=== PATIENT | male | born 1955 | race Caucasian/White ===

== ENCOUNTER 2019-08-04 12:03 | Emergency (ER) | payer OTHER, SELFPAY ==
[2019-08-04 12:11] VITALS: BP 159/87; PULSE 103; RESP 16; TEMP 36.7; O2SAT 98
--- NOTE | 2019-08-04 12:27 | ED.GENADULT ---
HPI - General Adult General Chief complaint: Skin/Abscess/Foreign Body Stated complaint: poison linda oak Time Seen by Provider: 08/04/19 12:27 Source: patient Mode of arrival: ambulatory Limitations: no limitations History of Present Illness HPI narrative: 64-year-old male patient presents to the the medical center with complaints of a rash for the past 3 to 4 days. Patient states he was working out in the yard and thinks he came in contact with poison linda. Patient states that he has rash to bilateral sides of the arms, bilateral and legs, and noticed that his top of the head as well as his face. Patient states yesterday his left eye was swollen now today the right eye is swollen but the left eye is better. Patient denies any vision changes or irritation to the actual eyes only the complaints of the eyelids. Patient states that he has been taking Benadryl for his symptoms. Patient states he has had this before and has needed to be treated with steroids. Related Data Home Medications Medication Instructions Recorded Confirmed budesonide-formoterol [Symbicort] 2 puff INHALATION Q12H 08/04/19 08/04/19 carvedilol 6.25 mg PO BID 08/04/19 08/04/19 folic acid 1 mg PO DAILY 08/04/19 08/04/19 furosemide 20 mg PO DAILY 08/04/19 08/04/19 hydralazine 25 mg PO TID 08/04/19 08/04/19 isosorbide mononitrate 60 mg PO DAILY 08/04/19 08/04/19 thiamine HCl (vitamin B1) [Vitamin 100 mg PO DAILY 08/04/19 08/04/19 B-1] Allergies Allergy/AdvReac Type Severity Reaction Status Date / Time No Known Allergies Allergy Mild Verified 08/04/19 12:18 Review of Systems Review of Systems: Narrative: CONSTITUTIONAL: Denies fever, chills, or sweats. EYES: Denies visual changes, redness, or discharge. ENT: Denies rhinorrhea, congestion, sore throat, or otalgia. CARDIOVASCULAR: Denies chest pain, palpitations, or edema. RESPIRATORY: Denies cough or dyspnea. GASTROINTESTINAL: Denies abdominal pain, nausea, vomiting, or diarrhea. GENITOURINARY: Denies dysuria or hematuria. SKIN: Positive rash to bilateral arms, face and bilateral legs, back and top of head x3 to 4 days MUSCULOSKELETAL: Denies back pain, joint pain, or myalgia. NEUROLOGIC: Denies headache, numbness, or weakness. PSYCHIATRIC: Denies anxiety or depression. [facility] Past Medical History Medical History (Updated 08/04/19 @ 12:36 by ABDIRIZAK Baum) COPD (chronic obstructive pulmonary disease) Leukemia Myocardial infarction Comments At the time of my signature I agree with nursing past medical history, surgical, social, and family history. There is no relevant family history pertinent to the presenting complaint. Exam Narrative: Exam Narrative: GENERAL: Well-appearing, well-nourished, and in no acute distress. HEAD: Normocephalic, atraumatic. EYES: PERRLA and EOM intact without limitation or complaint of pain, right eye periorbital soft tissue swelling and erythema, no warmth or tenderness noted, no obvious deformity. No crusting or swelling.no tearing or draining.No photophobia. No nystagmus No FB or lesion on lid eversion. Corneas grossly clear, no obvious FB or hyphens/hypopyon. No injection to sclera. Lids and lashes clear. ENT: Nares clear, no rhinorrhea or epistaxis. Mucous membranes moist. NECK: Supple. No lymphadenopathy CHEST: Clear to auscultation. No respiratory distress. HEART: Regular rate and rhythm. No murmur heard. Normal peripheral pulses. ABDOMEN: Soft, nontender, nondistended, normal active bowel sounds. EXTREMITIES: Normal range of motion. No edema. SKIN: Patient has dry macular flat rash with erythema and itchiness to bilateral arms, top of the head, upper back, bilateral legs as well as some erythema and swelling over the no nasal congestion or inflammation, no frontal or maxillary sinus tenderness, no erythema, warmth. Good symmetry to face. No facial droop. Normal facial sensation to light touch in three branches of trigeminal nerve. No TMJ or jaw click present. Right eye. NE
== END 2019-08-04 12:40 | disposition home or self-care (01) ==
PROVIDERS: Emergency Provider Nurse Practitioner Family
DX: L23.7 Allergic contact dermatitis due to plants, except food (principal); J44.9 Chronic obstructive pulmonary disease, unspecified; C95.90 Leukemia, unspecified not having achieved remission; I25.2 Old myocardial infarction
CPT/HCPCS: 99203; G0463

== ENCOUNTER 2019-08-23 16:00 | Emergency (ER) | payer MEDICARE, OTHER, BC, SELFPAY ==
--- NOTE | 2019-08-23 16:10 | ED.SKABFB ---
HPI - Skin/Abscess/Foreign Bdy General Chief complaint: Skin/Abscess/Foreign Body Stated complaint: rash on chest and back Time Seen by Provider: 08/23/19 16:11 Source: patient and RN notes reviewed History of Present Illness HPI narrative: Patient is a 64-year-old male that presents the urgent care with complaints of a painful itchy rash to the right back radiating around the right side into the right chest. Patient states that on August 03 he was treated for poison linda with triamcinolone, Zyrtec and prednisone. Patient states that the poison linda went away and then he developed this other rash. No other acute complaints. No acute distress noted. Patient read the plan of care. Related Data Home Medications Medication Instructions Recorded Confirmed budesonide-formoterol [Symbicort] 2 puff INHALATION Q12H 08/04/19 08/23/19 carvedilol 6.25 mg PO BID 08/04/19 08/23/19 folic acid 1 mg PO DAILY 08/04/19 08/23/19 furosemide 20 mg PO DAILY 08/04/19 08/23/19 hydralazine 25 mg PO TID 08/04/19 08/23/19 isosorbide mononitrate 60 mg PO DAILY 08/04/19 08/23/19 thiamine HCl (vitamin B1) [Vitamin 100 mg PO DAILY 08/04/19 08/23/19 B-1] Allergies Allergy/AdvReac Type Severity Reaction Status Date / Time No Known Allergies Allergy Mild Verified 08/04/19 12:18 Review of Systems Review of Systems: Narrative: CONSTITUTIONAL: Denies fever, chills, or sweats. EYES: Denies visual changes, redness, or discharge. ENT: Denies rhinorrhea, congestion, sore throat, or otalgia. CARDIOVASCULAR: Denies chest pain, palpitations, or edema. RESPIRATORY: Denies cough or dyspnea. GASTROINTESTINAL: Denies abdominal pain, nausea, vomiting, or diarrhea. GENITOURINARY: Denies dysuria or hematuria. SKIN: Reports of a painful rash to the right back radiating around the right side into the right chest MUSCULOSKELETAL: Denies back pain, joint pain, or myalgia. NEUROLOGIC: Denies headache, numbness, or weakness. All other systems reviewed are negative, except as documented in HPI. [facility] Past Medical History Medical History (Updated 08/23/19 @ 16:27 by ABDIRIZAK Chin) COPD (chronic obstructive pulmonary disease) Leukemia Myocardial infarction Comments At the time of my signature, I reviewed and agree with the nursing past medical, surgical, social, and family history. There is no relevant family history pertinent to the patient complaint. Exam Narrative: Exam Narrative: GENERAL: This is a well-nourished, well-developed patient, in no apparent distress. HEAD: normocephalic, atraumatic. EYES: PERRL. Sclera clear/white. Vision is grossly intact. EARS: External ears normal NOSE: External nose normal with no obvious nasal discharge THROAT: Mucous membranes moist, posterior pharynx clear. NECK: Neck supple SKIN: 3 cm area of erythema with multiple black scabs to the center on the right mid back; 2 pinpoint black scabs with surrounding erythema noted to the right chest with severe pain and tenderness to the right side NEURO: awake, alert, and oriented to person, place and time. There were no obvious focal neurologic abnormalities. EXTREMITIES: No clubbing, cyanosis, or edema. Course Vital Signs Vital signs: Vital Signs Temperature 97.8 F 08/23/19 16:11 Pulse Rate 103 H 08/23/19 16:11 Respiratory Rate 22 H 08/23/19 16:11 Blood Pressure 147/79 H 08/23/19 16:11 Pulse Oximetry 99 08/23/19 16:11 Temperature 97.8 F 08/23/19 16:11 Pulse Rate 103 H 08/23/19 16:11 Respiratory Rate 22 H 08/23/19 16:11 Blood Pressure 147/79 H 08/23/19 16:11 Pulse Oximetry 99 08/23/19 16:11 Reviewed?patient is informed that they may have pre-hypertension or hypertension based on a blood pressure reading in the department. I recommend the patient call the primary care provider listed on their discharge instructions or a physician of their choice this week to arrange follow-up for further evaluation of possible pre-hypertension or hypertension.
[2019-08-23 16:11] VITALS: BP 147/79; PULSE 103; RESP 22; TEMP 36.6; O2SAT 99
== END 2019-08-23 16:25 | disposition home or self-care (01) ==
PROVIDERS: Emergency Provider Nurse Practitioner Family
DX: B02.9 Zoster without complications (principal); J44.9 Chronic obstructive pulmonary disease, unspecified; I25.2 Old myocardial infarction; I10 Essential (primary) hypertension; Z85.6 Personal history of leukemia
CPT/HCPCS: 99213; G0463

== ENCOUNTER 2019-10-02 16:20 | Emergency (ER) | payer MEDICARE, OTHER, MEDICAID, SELFPAY ==
--- NOTE | ~2019-10-02 | XR_ITS ---
EXAMINATION: XR chest 2V DATE: 10/02/2019 17:06 INDICATION: 1-2 weeks of chest pain and shortness of breath TECHNIQUE: frontal and lateral views of the chest were obtained. COMPARISON: Chest radiograph dated 08/03/2015 FINDINGS: Stable appearance of chronic pleural-parenchymal scarring at the periphery of the left lower lung zon e. No new airspace opacities, pulmonary edema, pleural effusion or pneumothorax. The cardiomediastina l silhouette is normal. Anterior plate and screw fixation for lower cervical anterior spinal fusion. IMPRESSION: 1. Chronic pleural parenchymal scarring at the left lower lung zone. No acute cardiopulmonary disease . Reviewed, dictated and finalized at location A. IMPRESSION: 1. Chronic pleural parenchymal scarring at the left lower lung zone. No acute c ardiopulmonary disease.
--- NOTE | 2019-10-02 16:35 | ED.GENADULT ---
HPI - General Adult General Chief complaint: Skin/Abscess/Foreign Body Stated complaint: chest congestion/shingles Time Seen by Provider: 10/02/19 16:51 Source: patient Mode of arrival: ambulatory Limitations: no limitations History of Present Illness HPI narrative: 64-year-old male patient presents to the [facility] with complaints of shingle rash as well as cough, pain, and shortness of breath. Patient does have a history of COPD and states that he also does have leukemia. Patient currently not having any treatment for leukemia and states he is supposed to start seeing somebody in the next couple of weeks. Patient states he has not been able to get into his primary doctor. Patient states he has had the shingles rash now for the past 3 months and has been on antivirals, pain medication, and continues to have increase in pain. Patient states he is also had some pneumonia couple of times over the last couple of months. Patient is requesting pain medication at this time for the shingles pain. Related Data Home Medications Medication Instructions Recorded Confirmed budesonide-formoterol [Symbicort] 2 puff INHALATION Q12H 08/04/19 10/02/19 carvedilol 6.25 mg PO BID 08/04/19 10/02/19 folic acid 1 mg PO DAILY 08/04/19 10/02/19 furosemide 20 mg PO DAILY 08/04/19 10/02/19 hydralazine 25 mg PO TID 08/04/19 10/02/19 isosorbide mononitrate 60 mg PO DAILY 08/04/19 10/02/19 thiamine HCl (vitamin B1) [Vitamin 100 mg PO DAILY 08/04/19 10/02/19 B-1] albuterol sulfate [ProAir HFA] 2 puff INHALATION QID PRN 10/02/19 10/02/19 cyanocobalamin (vitamin B-12) 1,000 mcg PO DAILY 10/02/19 10/02/19 [Vitamin B-12] ipratropium-albuterol 3 ml INHALATION QID PRN 10/02/19 10/02/19 fhicgxbxoeip-vqw-[id number]-FA-vit K 1 tablet PO DAILY 10/02/19 10/02/19 [Adults Multivitamin] Allergies Allergy/AdvReac Type Severity Reaction Status Date / Time No Known Allergies Allergy Mild Verified 08/04/19 12:18 Review of Systems Review of Systems: Narrative: CONSTITUTIONAL: Denies fever, chills, or sweats. EYES: Denies visual changes, redness, or discharge. ENT: Denies rhinorrhea, congestion, sore throat, or otalgia. CARDIOVASCULAR: Denies chest pain, palpitations, or edema. RESPIRATORY: Positive cough with dyspnea. GASTROINTESTINAL: Denies abdominal pain, nausea, vomiting, or diarrhea. GENITOURINARY: Denies dysuria or hematuria. SKIN: Denies rash or itching. Positive painful rash to right side and chest MUSCULOSKELETAL: Denies back pain, joint pain, or myalgia. NEUROLOGIC: Denies headache, numbness, or weakness. PSYCHIATRIC: Denies anxiety or depression. [facility] Past Medical History Medical History COPD (chronic obstructive pulmonary disease) Leukemia Myocardial infarction Comments At the time of my signature I agree with nursing past medical history, surgical, social, and family history. There is no relevant family history pertinent to the presenting complaint. Exam Narrative: Exam Narrative: GENERAL: ill-appearing, well-nourished, and in no acute distress. HEAD: Normocephalic, atraumatic. EYES: PERRLA and EOMI. ENT: Nares clear, no rhinorrhea or epistaxis. Mucous membranes moist. NECK: Supple. No lymphadenopathy CHEST: Patient does have wheezing and crackles noted to bilateral upper and lower lobes on inspiration and expiratory. No respiratory distress. Patient able talk in clear complete sentences. HEART: Regular rate and rhythm. No murmur heard. Normal peripheral pulses. ABDOMEN: Soft, nontender, nondistended, normal active bowel sounds. Patient does have 1 small scabbed over area to the right upper abdomen with surrounding erythema. There is a cluster of 3 or 4 similar scabbed over rash with surrounding erythema noted to the right middle back. EXTREMITIES: Normal range of motion. No edema. SKIN: Warm, dry, no rash. NEURO: No focal deficits. Alert and oriented x3. Course Reevaluation(s) Reev
[2019-10-02 16:36] VITALS: BP 146/92; PULSE 102; RESP 14; TEMP 37.6; O2SAT 98
[2019-10-02] MEDS: KETOROLAC (*BKC) 60 MG/2 ML VIAL IM (17:07)
== END 2019-10-02 17:27 | disposition short-term general hospital (02) ==
PROVIDERS: Emergency Provider Nurse Practitioner Family
DX: R06.02 Shortness of breath (principal); C95.90 Leukemia, unspecified not having achieved remission; B02.8 Zoster with other complications; J44.9 Chronic obstructive pulmonary disease, unspecified; I10 Essential (primary) hypertension; I25.2 Old myocardial infarction
CPT/HCPCS: 71046; 96372; 99213; G0463; J1885

== ENCOUNTER 2020-09-14 11:09 | Emergency (ER) | payer MEDICARE, OTHER, MEDICAID, SELFPAY ==
[2020-09-14 11:17] VITALS: BP 154/96; PULSE 110; RESP 16; TEMP 37.5; O2SAT 99
[2020-09-14] MEDS: AZITHROMYCIN 250 MG TABLET 1000 MG PO (12:08)
[2020-09-14] MEDS: cefTRIAXone 250 MG VIAL 500 MG IM (12:10)
[2020-09-14] MEDS: LIDOCAINE HCL 1% LOCAL INJ 20 ML VIAL IM (12:11)
--- NOTE | 2020-09-14 12:57 | ED.MALEGU ---
HPI - Male Genitourinary General Chief complaint: Urogenital-Male Stated complaint: STD Testing Time Seen by Provider: 09/14/20 11:41 Source: patient and RN notes reviewed Mode of arrival: ambulatory Limitations: no limitations History of Present Illness HPI Narrative: Patient presents today with a 3-day history of milky white penile discharge, dysuria. He also states he is, festering at the pee hole. He has 3-4 female partners and has not been told by any of them that they are currently positive for any sexually transmitted infections. Denies hematuria, urinary frequency. Denies history of sexually transmitted infections. Denies pain in the testicles, testicular swelling. Related Data Home Medications Medication Instructions Recorded Confirmed budesonide-formoterol [Symbicort] 2 puff INHALATION Q12H 08/04/19 09/14/20 carvedilol 6.25 mg PO BID 08/04/19 09/14/20 folic acid 1 mg PO DAILY 08/04/19 09/14/20 furosemide 20 mg PO DAILY 08/04/19 09/14/20 hydralazine 25 mg PO TID 08/04/19 09/14/20 isosorbide mononitrate 60 mg PO DAILY 08/04/19 10/02/19 thiamine HCl (vitamin B1) [Vitamin 100 mg PO DAILY 08/04/19 09/14/20 B-1] albuterol sulfate [ProAir HFA] 2 puff INHALATION QID PRN 10/02/19 09/14/20 cyanocobalamin (vitamin B-12) 1,000 mcg PO DAILY 10/02/19 09/14/20 [Vitamin B-12] ipratropium-albuterol 3 ml INHALATION QID PRN 10/02/19 09/14/20 imsstcanznxb-ldt-vlru-FA-vit K 1 tablet PO DAILY 10/02/19 09/14/20 [Adults Multivitamin] fluticasone furoate-vilanterol 200 ea INHALATION DIRECTED PRN 09/14/20 09/14/20 [Breo Ellipta] hydrocodone-acetaminophen 10 tablet PO DAILY 09/14/20 09/14/20 spironolactone 25 mg PO DAILY 09/14/20 09/14/20 ticagrelor [Brilinta] 90 mg PO DAILY 09/14/20 09/14/20 Allergies Allergy/AdvReac Type Severity Reaction Status Date / Time No Known Allergies Allergy Mild Verified 08/04/19 12:18 Review of Systems Review of Systems: Narrative: CONSTITUTIONAL: Denies body aches, fever, chills, or sweats. EYES: Denies visual changes, redness, or discharge. ENT: Denies rhinorrhea, congestion, sore throat, or otalgia. CARDIOVASCULAR: Denies chest pain, palpitations, or edema. RESPIRATORY: Denies cough or dyspnea. GASTROINTESTINAL: Denies abdominal pain, nausea, vomiting, or diarrhea. GENITOURINARY: + Mild discharge, dysuria, penile sore SKIN: Denies rash, itching, or wounds. MUSCULOSKELETAL: Denies back pain, joint pain, or myalgia. NEUROLOGIC: Denies headache, numbness, tingling, or weakness. PSYCH: Denies depression or anxiety. [facility] Past Medical History Medical History (Updated 09/14/20 @ 12:20 by Dahiana Lopez, ABDIRIZAK, ) COPD (chronic obstructive pulmonary disease) Leukemia Myocardial infarction Social History Social History Gender identity (if verbalized by the patient): Male Comments At time of signature, I have reviewed and agree with nursing past medical, surgical, social and family history unless otherwise noted. Please see nursing chart for further information. There is no relevant family history pertinent to the presenting complaint Exam Narrative: Exam Narrative: GENERAL: Well-appearing, well-nourished, and in no acute distress. HEAD: Normocephalic, atraumatic. EYES: EOMI. No redness or drainage. Conjunctivae normal. ENT: Mucous membranes pink and moist. NECK: Normal AROM. CHEST: No respiratory distress. : Copious milky white penile discharge from the urethra. Tiny yellow ulceration that spans the urethral meatus with erythematous base. Testicles and scrotum are nontender without edema. Penis is nontender aside from the ulceration. MUSCULOSKELETAL: No bony tenderness. EXTREMITIES: Normal range of motion. No edema. SKIN: Warm, dry, no rash. Capillary refill normal. Normal skin turgor. NEURO: No focal deficits. Alert and oriented x3. Gait steady. PSYCH: Normal affect. No signs of depression or anxiety. Chap
== END 2020-09-14 12:32 | disposition home or self-care (01) ==
PROVIDERS: Emergency Provider Nurse Practitioner; PCP Internal Medicine
DX: R36.9 Urethral discharge, unspecified (principal); Z20.2 Contact with and (suspected) exposure to infections with a predominantly sexual mode of transmission; J44.9 Chronic obstructive pulmonary disease, unspecified; I48.91 Unspecified atrial fibrillation; C95.90 Leukemia, unspecified not having achieved remission
CPT/HCPCS: 87491; 87591; 87661; 96372; 99213; A9270; G0463; J0696

== ENCOUNTER 2021-12-28 17:46 | Emergency (ER) | payer MEDICARE, OTHER, MEDICAID, SELFPAY ==
--- NOTE | ~2021-12-28 | XR_ITS ---
EXAMINATION: XR chest 2V Exam Date/Time: 12/28/2021 18:14 CDT HISTORY: SOB. COPD. SMOKER. Comparison: 10/02/2019. RESULT: Lines, tubes, and devices: Cervical fusion hardware. Lungs and pleura: Clear. Stable left basal pleural scarring and changes of chronic respiratory bronc hiolitis. Cardiomediastinal silhouette: Stable. Other: No acute osseous or upper abdominal finding. IMPRESSION: No acute cardiopulmonary process. Reviewed, dictated and finalized at location K.
--- NOTE | 2021-12-28 17:52 | ED.SKABFB ---
HPI - Skin/Abscess/Foreign Bdy General Chief complaint: Skin/Abscess/Foreign Body Stated complaint: Right arm stung by bee Time Seen by Provider: 12/28/21 17:52 Source: patient and RN notes reviewed History of Present Illness HPI narrative: Patient is a 66-year-old male who presents the urgent care with complaints of right arm swelling and redness that started yesterday after a bee sting. Patient states he is taken Benadryl and use ice without much improvement. Patient states he started feeling bad yesterday with some chills and increased shortness of breath. Patient does have COPD and states that he has been using his inhalers however is requesting refills because he wants he has primary care doctor. Patient states he had pneumonia 4 times last year and is concerned that he may have pneumonia again. Patient denies of chest pain. Denies any nausea or vomiting. No other acute complaints. No acute distress noted. Patient aware of the plan of care. Some parts of this dictation were generated by voice recognition software and may contain typographical and/or grammatical inaccuracies. Related Data Home Medications Medication Instructions Recorded Confirmed budesonide-formoterol HFA 160 2 puff inhalation Q12H 08/04/19 12/28/21 mcg-4.5 mcg/actuation aerosol inhaler (Symbicort) carvedilol 6.25 mg tablet 6.25 mg PO BID 08/04/19 12/28/21 folic acid 1 mg tablet 1 mg PO DAILY 08/04/19 12/28/21 furosemide 20 mg tablet 20 mg PO DAILY 08/04/19 12/28/21 hydralazine 25 mg tablet 25 mg PO TID 08/04/19 12/28/21 isosorbide mononitrate 60 mg 60 mg PO DAILY 08/04/19 12/28/21 tablet,extended release 24 hr thiamine HCl (vitamin B1) 100 mg 100 mg PO DAILY 08/04/19 12/28/21 tablet (Vitamin B-1) albuterol sulfate 90 mcg/actuation 2 puff inhalation QID PRN sob 10/02/19 12/28/21 aerosol inhaler (ProAir HFA) cyanocobalamin (vitamin B-12) 1,000 mcg PO DAILY 10/02/19 12/28/21 1,000 mcg tablet (Vitamin B-12) ipratropium 0.5 mg-albuterol 3 mg 3 ml inhalation QID PRN sob 10/02/19 12/28/21 (2.5 mg base)/3 mL nebulization soln multivit with minerals-iron 18 1 tablet PO DAILY 10/02/19 12/28/21 mg-folic ac 400 mcg-vit K 25 mcg tablet (Adults Multivitamin) fluticasone furoate 200 200 ea inhalation DIRECTED PRN 09/14/20 12/28/21 mcg-vilanterol 25 mcg/dose Shortness Of Breath Or Wheezing inhalation powder (Breo Ellipta) hydrocodone 10 mg-acetaminophen 10 tablet PO DAILY 09/14/20 12/28/21 325 mg tablet spironolactone 25 mg tablet 25 mg PO DAILY 09/14/20 12/28/21 ticagrelor 90 mg tablet (Brilinta) 90 mg PO DAILY 09/14/20 12/28/21 Allergies Allergy/AdvReac Type Severity Reaction Status Date / Time bee venom protein (honey bee) Allergy Swelling Verified 12/28/21 17:50 [bees] Review of Systems Review of Systems: CONSTITUTIONAL: Denies fever, chills, or sweats. EYES: Denies visual changes, redness, or discharge. ENT: Denies rhinorrhea, congestion, sore throat, or otalgia. CARDIOVASCULAR: Denies chest pain, palpitations, or edema. RESPIRATORY: Denies of cough but reports of dyspnea GASTROINTESTINAL: Denies abdominal pain, nausea, vomiting, or diarrhea. GENITOURINARY: Denies dysuria or hematuria. SKIN: Reports of redness, swelling and redness to the right lower arm due to bee sting MUSCULOSKELETAL: Denies back pain, joint pain, or myalgia. NEUROLOGIC: Denies headache, numbness, or weakness. All other systems reviewed are negative, except as documented in HPI. [facility] Past Medical History Medical History (Updated 12/28/21 @ 18:35 by ABDIRIZAK Chin) COPD (chronic obstructive pulmonary disease) Leukemia Myocardial infarction Social History Social History Gender identity (if verbalized by the patient): Male Comments At the time of my signature, I reviewed and agree with the nursing past medical, surgical, social, and family history. There is no relevant fa
[2021-12-28 17:58] VITALS: BP 155/90; PULSE 100; RESP 14; TEMP 36.3; O2SAT 95
== END 2021-12-28 18:38 | disposition home or self-care (01) ==
PROVIDERS: Emergency Provider Nurse Practitioner Family; PCP Family Medicine
DX: L03.113 Cellulitis of right upper limb (principal); J44.9 Chronic obstructive pulmonary disease, unspecified; I25.2 Old myocardial infarction; C95.90 Leukemia, unspecified not having achieved remission
CPT/HCPCS: 71046; 99213; G0463

== ENCOUNTER 2023-10-12 14:36 | Emergency (ER) | payer MEDICARE, OTHER, SELFPAY ==
[2023-10-12 14:44] VITALS: BP 136/92; PULSE 117; RESP 22; TEMP 37.1; O2SAT 97
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
== END 2023-10-12 15:16 | disposition short-term general hospital (02) ==
PROVIDERS: Emergency Provider Registered Nurse
DX: M79.622 Pain in left upper arm (principal); R05.2 Subacute cough; F17.200 Nicotine dependence, unspecified, uncomplicated; Z95.810 Presence of automatic (implantable) cardiac defibrillator; J44.9 Chronic obstructive pulmonary disease, unspecified; I10 Essential (primary) hypertension; I25.2 Old myocardial infarction; Z85.6 Personal history of leukemia; Z95.5 Presence of coronary angioplasty implant and graft
CPT/HCPCS: 99212; G0463